=== PATIENT | female | born 1965 | race Caucasian/White ===

== ENCOUNTER 2020-04-09 13:00 | Emergency (ER) | payer OTHER, SELFPAY ==
[2020-04-09 15:59] VITALS: BP 119/77; PULSE 61; RESP 20; TEMP 37.1; O2SAT 99; BMI 26.9
--- NOTE | 2020-04-09 16:14 | ED.FEVER ---
HPI - Fever General Chief Complaint: Fever Stated Complaint: fever,sob Time Seen by Provider: 04/09/20 16:14 Source: patient Mode of arrival: ambulatory Limitations: no limitations History of Present Illness HPI Narrative: tactile temperature MD elicited complaint: fever Onset (ago): week(s) (1) Relieving factors: acetaminophen Associated symptoms: cough Related Data Allergies Allergy/AdvReac Type Severity Reaction Status Date / Time No Known Allergies Allergy Verified 04/09/20 15:58 Review of Systems Constitutional: Constitutional: Reports no additional constitutional complaints Eyes: Eyes: Reports no additional eye complaints ENT: Denies dizziness Cardiovascular: Cardiovascular: Reports no additional cardiovascular complaints Respiratory: Respiratory: Reports as per HPI Gastrointestinal: Gastrointestinal: Reports no additional gastrointestinal complaints Genitourinary: Genitourinary: Reports no additional female genitourinary complaints Musculoskeletal: Comments: myalgieas Integumentary/Breasts: Skin/Breast: Denies rash Neurologic: Reports system reviewed and no additional complaints, except as documented, Denies dizziness and Denies Sensory deficit (Neuro) Psychiatric: Psychiatric: Denies anxiety [facility] Past Medical History Medical History (Updated 04/09/20 @ 16:23 by Alexsander Mendoza MD) Arthritis Depression Rheumatoid osteoperiostitis Physical Exam Vital Signs and I&O and Narrative: Vital Signs and I&O: Vital Signs Temp 98.7 F 04/09/20 15:59 Pulse 61 04/09/20 15:59 Resp 20 04/09/20 15:59 BP 119/77 04/09/20 15:59 Pulse Ox 99 04/09/20 15:59 Intake & Output 04/08/20 04/09/20 04/09/20 18:59 06:59 18:59 Weight 66.678 kg Body Mass Index 26.9 Const: General: healthy appearing Nutritional Appearance: average body habitus Orientation/consciousness: oriented to person and patient oriented x3 Limitations: no limitations HENMT: Head: Yes normal to inspection Ears: external ears normal General nose exam: Normal external nose present Mouth: Normal oral and palatal mucosa present and oropharynx normal Throat: Yes posterior oropharynx normal Eyes: General: appearance normal, both eyes and all related structures Neck: Other: supple Neck: Yes normal visual inspection Chest: Chest palpation & inspection: normal inspection of the chest Resp: Auscultation: clear to auscultation bilaterally Cardio: Jugular venous distension: no JVD Rate: regular rate Rhythm: regular rhythm Heart sounds: S1 normal heart sound present and S2 normal heart sound present GI: Inspection: Yes normal to inspection Palpation (GI): Soft to palpation, nontender and No hepatosplenomegaly present Auscultation: normal bowel sounds : General: Yes no CVA tenderness Back/Spine/Pelvis: Back: no CVA tenderness Skin: General skin exam: no rashes or lesions noted Neuro: General: oriented to person and patient oriented x3 Cranial nerves: Yes CN's II-XII intact bilaterally Motor exam (neuro): 5/5 motor strength present throughout Sensory Exam: No Sensory deficit (Neuro) Extrem: General: Yes normal to inspection Psych: Appearance: grossly normal Course Course Course Narrative: Patient looking well, will test for COVID and dc on tylenol and motrin MDM - Fever MDM Narrative Medical decision making narrative: Likely URI will check for Covid Discharge Plan Discharge Clinical Impression: Viral infection Upper respiratory infection Qualifiers: URI type: unspecified viral URI Qualified Code(s): J06.9 - Acute upper respiratory infection, unspecified Patient Disposition: Home, Self-Care Instructions: Fever in Adults (ED), Viral Syndrome (ED) Additional Instructions: Call your doctor to follow up with symptoms don't improve or get worse
[2020-04-09 16:45] VITALS: PULSE 87
== END 2020-04-09 17:02 | disposition home or self-care (01) ==
LOC: HO.ED 16:40
PROVIDERS: Emergency Provider Emergency Medicine
DX: B34.9 Viral infection, unspecified (principal); J06.9 Acute upper respiratory infection, unspecified; R50.9 Fever, unspecified; Z20.828 Contact with and (suspected) exposure to other viral communicable diseases
CPT/HCPCS: 36415; 87635; 99283; 99285